=== PATIENT | female | born 1945 | race Two or more races ===

== ENCOUNTER 2018-09-17 07:58 | Emergency (ER) | payer OTHER ==
[~2018-09-17] VITALS: Ht 165.1 cm; Wt 83.9 kg
[~2018-09-17 07:58] MED LIST: AMLO1CAP12 PO; ATOR10TA60 PO; DILT180C29 PO; LISI-130 PO; WARF4TAB64 PO
[2018-09-17 08:37] LABS: BASO % 1 % (0-3); EOS # 0.1 x10^3/uL (0.0-0.7); EOS % 1 % (0-3); HEMATOCRIT 41.1 % (36.0-47.0); HEMOGLOBIN 13.8 g/dL (12.0-15.5); LYMPH # 1.4 x10^3/uL (1.0-4.8); LYMPH % 22 % (24-48); MEAN CORPUSCULAR HEMOGLOBIN 30 pg (25-35); MEAN CORPUSCULAR HGB CONC 34 g/dL (31-37); MEAN CORPUSCULAR VOLUME 89 fL (79-100); MONO # 0.5 x10^3/uL (0.0-1.1); MONO % 8 % (0-9); NEUT # 4.4 x10^3uL (1.8-7.7); NEUT % 68 % (31-73); PLATELET COUNT 222 x10^3/uL (140-400); RED BLOOD COUNT 4.61 x10^6/uL (3.50-5.40); RED CELL DISTRIBUTION WIDTH 13.8 % (11.5-14.5); WHITE BLOOD COUNT 6.5 x10^3/uL (4.0-11.0)
[2018-09-17 08:47] LABS: PROTHROMBIN TIME PATIENT 20.4 SEC (11.7-14.0)
[2018-09-17 08:51] LABS: CALCIUM 9.2 mg/dL (8.5-10.1); CREATININE 0.8 mg/dL (0.6-1.0); GFR 69.9
[2018-09-17 08:57] LABS: ALBUMIN 4.2 g/dL (3.4-5.0); ALBUMIN/GLOBULIN RATIO 1.2 (1.0-1.7); TOTAL BILIRUBIN 0.8 mg/dL (0.2-1.0); TOTAL PROTEIN 7.6 g/dL (6.4-8.2)
[2018-09-17] MEDS ORDERED: fentaNYL PF VIAL 100 MCG/2 ML VIAL IV ONE ×2 (09:00→09:45)
[2018-09-17 09:43] LABS: BILIRUBIN,URINE NEGATIVE (NEG); CLARITY,URINE CLEAR; COLOR,URINE YELLOW; NITRITE,URINE NEGATIVE (NEG); PROTEIN,URINE NEGATIVE (NEG-TRACE); UROBILINOGEN,URINE 0.2 mg/dL (0.2 mg/dL)
[2018-09-17] MEDS ORDERED: ONDANSETRON PF 4 MG/2 ML VIAL. IV ONE (09:45)
--- NOTE | 2018-09-17 10:05 | RAD ---
Limited abdomen ultrasound HISTORY: Right upper quadrant abdominal pain. FINDINGS: Bowel gas shadowing limits visualization of some segments of the pancreas, abdominal aorta and IVC, visualized segments are normal. There may be mild plaquing of the abdominal aorta present. Slightly increased liver echogenicity relative to renal parenchyma may indicate mild imaging changes of liver steatosis. No liver mass, surface irregularity or nodularity documented. Hepatopedal portal vein blood flow is present. No gallstones or inflammatory changes of the gallbladder. Right renal length 11.2 cm. No hydronephrosis. Exophytic right renal lower pole unilocular anechoic 5.5 similar cyst. Spleen and left kidney were not evaluated. IMPRESSION: 5 cm simple right renal cyst. There may be mild sonographic changes of liver steatosis. Gallbladder sonographically normal. No biliary ductal dilation. Electronically signed by: Wild Wilder MD (09/17/2018 10:02 AM) [facility]
[2018-09-17 10:10] LABS: BACTERIA,URINE 0 /HPF (0-FEW); WBC,URINE 0 /HPF (0-4)
[2018-09-17 10:11] LABS: SQUAMOUS EPITHELIAL CELL,UR OCC /LPF
[2018-09-17] MEDS ORDERED: IOHEXOL 300 MG/ML 100ML VIAL. IV ONE (10:15)
[2018-09-17] MEDS ORDERED: CONTRAST GIVEN. MC PRN (10:15)
--- NOTE | 2018-09-17 10:47 | RAD ---
PQRS Compliance statement: One or more of the following individualized dose reduction techniques were utilized for this examination: 1. Automated exposure control. 2. Adjustment of the mA and/or kV according to patient size. 3. Use of iterative reconstruction technique. Indication:Right abdominal pain. Rule out appendicitis. TECHNIQUE: CT abdomen and pelvis with IV contrast with multiplanar reformats. COMPARISON: 09/16/2014 FINDINGS: Heart is normal in size. No pericardial or pleural effusion. Motion artifact in lung bases limiting evaluation. Motion artifact is seen in the upper abdomen limiting optimal evaluation. Liver, spleen, gallbladder, pancreas, adrenals are within normal limits. Simple cyst in the right kidney measuring 5.5 cm. No nephrolithiasis or hydronephrosis. Cortical scarring in the left kidney likely from prior infection. No enlarged retroperitoneal or pelvic adenopathy. No free pelvic fluid or ascites. No bowel obstruction. Normal appendix. Status post hysterectomy. Urinary bladder is within normal limits. No pneumoperitoneum. No suspicious bony lesion. IMPRESSION: Limited Exam due to motion artifact in the lung bases and upper abdomen. 1. Normal appendix. No bowel obstruction. 2. No nephrolithiasis or hydronephrosis. Electronically signed by: Jun Gonzalez DO (09/17/2018 10:44 AM) [facility]
[2018-09-17 11:00] VITALS: BP 163/76
--- NOTE | 2018-09-17 14:26 | PHYS DOC ---
Past Medical History Past Medical History: Hypertension Alcohol Use: None Drug Use: None Adult General Chief Complaint Chief Complaint: ABDOMINAL PAIN HPI HPI Patient is a 73 year old female presents with abdominal pain. She's feeling some Dull pain in her right mid abdominal area radiating over to her right flank area as well has been present ever since she got a new refill on her Coumadin. She is attributing the symptoms to that new bottle that she is now taking however she has been taking Coumadin for several months if not longer no chest pain no shortness of breath pain is worse with palpation and movement and twisting Review of Systems Review of Systems Constitutional: Denies fever or chills [] Eyes: Denies change in visual acuity, redness, or eye pain [] HENT: Denies nasal congestion or sore throat [] Respiratory: Denies cough or shortness of breath [] Cardiovascular: No additional information not addressed in HPI [] GI: Integument: Denies rash or skin lesions [] Neurologic: Denies headache, focal weakness or sensory changes [] Endocrine: Denies polyuria or polydipsia [] Denies melena All other systems were reviewed and found to be within normal limits, except as documented in this note. Current Medications Current Medications Current Medications Medications (Trade) Dose Ordered Sig/Jose Guadalupe Start Time Stop Time Status Last Admin Dose Admin Fentanyl Citrate (Fentanyl 2ml Vial) 50 mcg 1X ONCE 09/17/18 09:45 09/17/18 09:52 DC 09/17/18 09:49 50 MCG Info (CONTRAST GIVEN -- Rx MONITORING) 1 each PRN DAILY PRN 09/17/18 10:15 09/17/18 11:10 DC Iohexol (Omnipaque 300 Mg/ml) 75 ml 1X ONCE 09/17/18 10:15 09/17/18 10:16 DC 09/17/18 10:15 75 ML Ondansetron HCl (Zofran) 4 mg 1X ONCE 09/17/18 09:45 09/17/18 09:52 DC 09/17/18 09:48 4 MG Allergies Allergies Allergies Coded Allergies Type Severity Reaction Last Updated Verified No Known Drug Allergies 12/12/13 No Physical Exam Physical Exam Constitutional: Well developed, well nourished, no acute distress, non-toxic appearance. [] HENT: Normocephalic, atraumatic, bilateral external ears normal, oropharynx moist, no oral exudates, nose normal. [] Eyes: PERRLA, EOMI, conjunctiva normal, no discharge. [] Neck: Normal range of motion, no tenderness, supple, no stridor. [] Cardiovascular:Heart rate regular rhythm, no murmur [] Lungs & Thorax: Bilateral breath sounds clear to auscultation [] Abdomen: Bowel sounds normal, soft, right upper quadrant tenderness, no masses, no pulsatile masses. [] Skin: Warm, dry, no erythema, no rash. [] Back: There is mild CVA tenderness on the right Extremities: No tenderness, no cyanosis, no clubbing, ROM intact, no edema. [] Neurologic: Alert and oriented X 3, normal motor function, normal sensory function, no focal deficits noted. [] Psychologic: Affect normal, judgement normal, mood normal. [] Current Patient Data Vital Signs Vital Signs Date Time Temp Pulse Resp B/P (MAP) Pulse Ox O2 Delivery O2 Flow Rate FiO2 09/17/18 11:00 88 20 163/76 (105) 97 09/17/18 09:52 Room Air 09/17/18 08:05 98.3 98.3 Lab Values Laboratory Tests Test 09/17/18 08:25 09/17/18 09:35 White Blood Count 6.5 x10^3/uL (4.0-11.0) Red Blood Count 4.61 x10^6/uL (3.50-5.40) Hemoglobin 13.8 g/dL (12.0-15.5) Hematocrit 41.1 % (36.0-47.0) Mean Corpuscular Volume 89 fL (79-100) Mean Corpuscular Hemoglobin 30 pg (25-35) Mean Corpuscular Hemoglobin Concent 34 g/dL (31-37) Red Cell Distribution Width 13.8 % (11.5-14.5) Platelet Count 222 x10^3/uL (140-400) Neutrophils (%) (Auto) 68 % (31-73) Lymphocytes (%) (Auto) 22 % (24-48) L Monocytes (%) (Auto) 8 % (0-9) Eosinophils (%) (Auto) 1 % (0-3) Basophils (%) (Auto) 1 % (0-3) Neutrophils # (Auto) 4.4 x10^3uL (1.8-7.7) Lymphocytes # (Auto) 1.4 x10^3/uL (1.0-4.8) Monocytes # (Auto) 0.5 x10^3/uL (0.0-1.1) Eosinophils # (Auto) 0.1 x10^3/uL (0.0-0.7) Basophils # (Auto) 0.0 x10^3/uL (0.0-0.2) Prothrombin Time 20.4 SEC (11.7-14.0) H Prothrombin Time INR 1.8 (0.8-1.1) H Sodium Level 140 mmol/L (136-145) Potassium Level 4.0 mmol/L (3.5-5.1) Chloride Level 102 mmol/L (98-107) Carbon Dioxide Level 26 mmol/L (21-32) Anion Gap 12 (6-14) Blood Urea Nitrogen 19 mg/dL (7-20) Creatinine 0.8 mg/dL (0.6-1.0) Estimated GFR (Cockcroft-Gault) 69.9 BUN/Creatinine Ratio 24 (6-20) H Glucose Level 136 mg/dL (70-99) H Calcium Level 9.2 mg/dL (8.5-10.1) Total Bilirubin 0.8 mg/dL (0.2-1.0) Aspartate Amino Transferase (AST) 34 U/L (15-37) Alanine Aminotransferase (ALT) 39 U/L (14-59) Alkaline Phosphatase 73 U/L (46-116) Troponin I Quantitative < 0.017 ng/mL (0.000-0.055) Total Protein 7.6 g/dL (6.4-8.2) Albumin 4.2 g/dL (3.4-5.0) Albumin/Globulin Ratio 1.2 (1.0-1.7) Lipase 140 U/L (73-393) Urine Collection Type Unknown Urine Color Yellow Urine Clarity Clear Urine pH 7.0 Urine Specific [place] 1.010 Urine Protein Negative mg/dL (NEG-TRACE) Urine Glucose (UA) Negative mg/dL (NEG) Urine Ketones (Stick) Negative mg/dL (NEG) Urine Blood Small (NEG) Urine Nitrite Negative (NEG) Urine Bilirubin Negative (NEG) Urine Urobilinogen Dipstick 0.2 mg/dL (0.2 mg/dL) Urine Leukocyte Esterase Trace (NEG) Urine RBC 3-5 /HPF (0-2) Urine WBC 0 /HPF (0-4) Urine Squamous Epithelial Cells Occ /LPF Urine Bacteria 0 /HPF (0-FEW) Laboratory Tests 09/17/18 08:25 Laboratory Tests 09/17/18 08:25 EKG EKG [] Radiology/Procedures Radiology/Procedures [] Impressions: IMPRESSION: Limited Exam due to motion artifact in the lung bases and upper abdomen. 1. Normal appendix. No bowel obstruction. 2. No nephrolithiasis or hydronephrosis. Electronically signed by: Jun Gonzalez DO (09/17/2018 10:44 AM) [facility] IMPRESSION: 5 cm simple right renal cyst. There may be mild sonographic changes of liver steatosis. Gallbladder sonographically normal. No biliary ductal dilation. Electronically signed by: Dominick Wilder MD (09/17/2018 10:02 AM) [facility] DICTATED and SIGNED BY: DOMINICK WILDER MD DATE: 09/17/18 1002 Course & Med Decision Making Course & Med Decision Making Pertinent Labs and Imaging studies reviewed. (See chart for details) []Labs are essentially unremarkable patient had an extensive workup in the lisa rgency room essentially negative workup normal gallbladder no signs of appendicitis. She was given the CT report in her discharge instructions to follow-up with her primary doctor about. EKG showed A. fib with rate of 80 no acute ischemic changes were noted left bundle branch block pattern QRS 142 Patient felt better the emergency room after pain control. She will follow-up with her primary care doctor regarding her usual daily medications. There is reproducible nature on examination at this time. Dragon Disclaimer Dragon Disclaimer This electronic medical record was generated, in whole or in part, using a voice recognition dictation system. Departure Departure Impression: Primary Impression: Abdominal pain Disposition: HOME, SELF-CARE Condition: STABLE Referrals: EUNICE JIMÉNEZ MD Patient Instructions: Abdominal Pain, [id number] Additional Instructions: ct scan report from the ER: FINDINGS: Heart is normal in size. No pericardial or pleural effusion. Motion artifact in lung bases limiting evaluation. Motion artifact is seen in the upper abdomen limiting optimal evaluation. Liver, spleen, gallbladder, pancreas, adrenals are within normal limits. Simple cyst in the right kidney measuring 5.5 cm. No nephrolithiasis or hydronephrosis. Cortical scarring in the left kidney likely from prior infection. No enlarged retroperitoneal or pelvic adenopathy. No free pelvic fluid or ascites. No bowel obstruction. Normal appendix. Status post hysterectomy. Urinary bladder is within normal limits. No pneumoperitoneum. No suspicious bony lesion. IMPRESSION: Limited Exam due to motion artifact in the lung bases and upper abdomen. 1. Normal appendix. No bowel obstruction. 2. No nephrolithiasis or hydronephrosis. Electronically signed by: Jun Gonzalez DO (09/17/2018 10:44 AM) [facility] DICTATED and SIGNED BY: JUN GONZALEZ DO DATE: 09/17/18 1044 VERONICA LINDSEY MD Sep 17, 2018 14:26
--- NOTE | 2018-09-18 06:41 | EKG ---
[facility] [address] [place] [address] Test Date: 2018-09-17 Test Time: 08:33:14 Pat Name: JOHNNY MONTERO Department: Room: Gender: F Licsw: : 1945 Requested By: VERONICA LINDSEY Order Number: [id number] Reading MD: Measurements Intervals [place] Rate: 80 P: -45 [place]: 328 QRS: -8 QRSD: 142 T: 89 QT: 402 QTc: 467 Interpretive Statements SINUS RHYTHM ATRIAL PREMATURE COMPLEX(ES) PROLONGED [place] INTERVAL LEFTWARD AXIS NON SPECIFIC INTRAVENTRICULAR BLOCK ABNORMAL ECG RI6.01 Unconfirmed report No previous ECG available for comparison
== END 2018-09-17 11:10 | disposition home or self-care (01) ==
LOC: ER 07:58
DX: R10.11 Right upper quadrant pain (principal); I10 Essential (primary) hypertension; Z79.01 Long term (current) use of anticoagulants
CPT/HCPCS: 36415; 74177; 76705; 80053; 81001; 83690; 84484; 85025; 85610; 87086; 93005; 96374; 96375; 96376; 99285; J2405; J3010; Q9967

== ENCOUNTER 2020-11-24 11:19 | Emergency (ER) | payer MEDICARE, OTHER ==
[~2020-11-24] VITALS: Ht 167.6 cm; Wt 77.3 kg
[~2020-11-24 11:19] MED LIST changes: -AMLO1CAP12 PO; +AMLO1CAP13 PO
--- NOTE | 2020-11-24 15:22 | PHYS DOC ---
Past Medical History Past Medical History: Hypertension (JACOBO HOLMAN PUBLIC AREA ATTENDANT) Smoking Status: Never Smoker Alcohol Use: None Drug Use: None (JACOBO HOLMAN APRN) General Adult EDM: Chief Complaint: FLU SYMPTOM HPI: HPI: Patient is a 75 year old female who presents with 1 week of cough, shortness of air and sore throat from coughing. She states she was given Tessalon Perles are not helping. Patient rates her discomfort at a 5 out of 10. Denies any current Covid vaccines. Patient denies nausea, vomiting, diarrhea, headache, dizziness, numbness or tingling, focal weakness. She is a history of hypertension. (JACOBO HOLMAN PUBLIC AREA ATTENDANT) Review of Systems: Review of Systems: Constitutional: Denies fever or chills. [] Eyes: Denies change in visual acuity. [] HENT: Denies nasal congestion or sore throat. [] Respiratory: +cough or +shortness of breath. [] Cardiovascular: Denies chest pain or edema. [] GI: + Epigastric abdominal pain, denies nausea, vomiting, bloody stools or diarrhea. [] : Denies dysuria. [] Musculoskeletal: Denies back pain or joint pain. [] Integument: Denies rash. [] Neurologic: Denies headache, focal weakness or sensory changes. [] Endocrine: Denies polyuria or polydipsia. [] Lymphatic: Denies swollen glands. [] Psychiatric: Denies depression or anxiety. [] (JACOBO HOLMAN PUBLIC AREA ATTENDANT) Heart Score: C/O Chest Pain: No Risk Factors: Risk Factors: DM, Current or recent (<one month) smoker, HTN, HLP, family history of CAD, obesity. Risk Scores: Score 0 - 3: 2.5% MACE over next 6 weeks - Discharge Home Score 4 - 6: 20.3% MACE over next 6 weeks - Admit for Clinical Observation Score 7 - 10: 72.7% MACE over next 6 weeks - Early Invasive Strategies (JACOBO HOLMAN PUBLIC AREA ATTENDANT) Allergies: Allergies: Allergies Coded Allergies Type Severity Reaction Last Updated Verified No Known Drug Allergies 12/12/13 No (JACOBO HOLMAN PUBLIC AREA ATTENDANT) Physical Exam: PE: Constitutional: Well developed, well nourished, no acute distress, non-toxic appearance. [] HENT: Normocephalic, atraumatic, bilateral external ears normal, oropharynx moist, no oral exudates, nose normal. [] Eyes: PERRLA, EOMI, conjunctiva normal, no discharge. [] Neck: Normal range of motion, no tenderness, supple, no stridor. [] Cardiovascular:Heart rate regular rhythm, no murmur [] Lungs & Thorax: Bilateral upper breath sounds clear and lower diminished to auscultation [] Abdomen: Bowel sounds normal, soft, no tenderness, no masses, no pulsatile masses. [] Skin: Warm, dry, no erythema, no rash. [] Back: No tenderness, no CVA tenderness. [] Extremities: No tenderness, no cyanosis, no clubbing, ROM intact, no edema. [] Neurologic: Alert and oriented X 3, normal motor function, normal sensory function, no focal deficits noted. [] Psychologic: Affect normal, judgement normal, mood normal. [] (JACOBO HOLMAN APRN) Current Patient Data: Vital Signs: Vital Signs Date Time Temp Pulse Resp B/P (MAP) Pulse Ox O2 Delivery O2 Flow Rate FiO2 11/24/20 19:00 96 18 160/75 (103) 94 Room Air 11/24/20 18:30 94 18 165/76 (105) 94 Room Air 11/24/20 18:00 94 18 166/75 (105) 96 Room Air 11/24/20 17:30 98 18 164/64 (97) 96 Room Air 11/24/20 17:00 100 18 181/80 (113) 98 Room Air 11/24/20 16:30 90 18 157/87 (110) 95 Room Air 11/24/20 14:50 98.3 104 18 181/84 97 Room Air 98.3 (SUKHDEEP PENG DO) EKG: EK and read by Dr Peng as irregular sinus rhythm, LBBB and no stemi (JACOBO HOLMAN APRN) Radiology/Procedures: Radiology/Procedures: [] Impression: [facility] [address] [place] [address] IMAGING REPORT Signed PATIENT: JOHNNY MONTERO ACCOUNT: [id number] : 1945 LOCATION: ER AGE: 75 SEX: F EXAM STATUS: REG ER ORD. PHYSICIAN: JACOBO HOLMAN APRN REASON: COUGH PROCEDURE: PORTABLE CHEST 1V XR CHEST 1V History: Cough. Comparison: None. Technique: Portable AP radiograph of the chest. Findings: The lungs are adequately inflated. There are bilateral lower lobe predominant patchy airspace opacities. No pleural effusion or pneumothorax. Cardiac silhouette is at the upper limits of normal for size. Pulmonary vasculature is unremarkable. Degenerative changes of the shoulders. Soft tissues are within normal limits. Impression: 1. Patchy bilateral airspace opacities concerning for multifocal infection versus edema. Electronically signed by: Roney Estevez MD (11/24/2020 3:22 PM) [id number] DICTATED and SIGNED BY: RONEY ESTEVEZ MD DATE: 11/24/20 [id number] (JACOBO HOLMAN APRN) Course & Med Decision Making: Course & Med Decision Making Pertinent Labs and Imaging studies reviewed. (See chart for details) COVID-19 CRITERIA: The patient was evaluated during the global COVID-19 pandemic, and that diagnosis was suspected/considered upon their initial presentation. Their evaluation, treatment and testing was consistent with current guidelines for patients who present with complaints or symptoms that may be related to COVID-19. See HPI. Alert and oriented x4. Ambulatory with a steady gait. Speaks in full clear sentences. Throat is pink without exudates or swelling. Lungs are clear in upper lobes and diminished in lower lobes. Afebrile. Vital signs within no rmal limits. Patient is Covid positive. She does have pneumonia. Patient is given 500 mL of bolus fluid. Given Zosyn in the ED. I also gave her dexamethasone. I will send her home with a Medrol Dosepak and inhaler. [] (JACOBO HOLMAN APRN) Course & Med Decision Making I have participated in the care of this patient and I have reviewed and agree with all pertinent clinical information above including history, exam, and recommendations. Patient with no supplemental oxygen requirement at the time of disposition. Symptomatically improved. Discharged in stable condition. Sukhdeep Peng DO (SUKHDEEP PENG DO) Mami Disclaimer: Mami Disclaimer: This electronic medical record was generated, in whole or in part, using a voice recognition dictation system. (JACOBO HOLMAN APRN) Departure Departure Impression: Primary Impression: COVID-19 Additional Impression: Pneumonia Qualified Codes: J18.9 - Pneumonia, unspecified organism Disposition: 01 HOME / SELF CARE / HOMELESS Condition: STABLE Referrals: TRICIA TRAN MD (PCP) Patient Instructions: Pneumonia, Adult Additional Instructions: Follow up with primary care doctor. Quarantine for 14 days. Drink plenty of fluids. You have been tested for or diagnosed with COVID-19. It is an infection caused by a new type of coronavirus. COVID-19 will cause cold-like or mild flu symptoms in most. It can cause more severe symptoms like problems breathing in some. There is no treatment for COVID-19. The body will clear the infection over time. Self-care will help to ease discomfort. Steps to Take: Self-Care Rest as needed. Healthy habits may help you feel better. Steps include: Choose healthy foods including fruits and vegetables. Drink water throughout the day. Get plenty of sleep each night. If you smoke, try to quit. It may ease breathing. Avoid alcohol. Keep Others Healthy The virus can spread to others. Droplets are released every time you sneeze or cough. The droplets can get into the mouth, nose, or eyes of people near you and lead to infection. To lower the chances of spreading COVID-19 to others: Stay at home until your doctor has said it is safe to leave. If you tested positive this will mean staying isolated until both of the following are true: At least 7 days have passed since the start of illness. You are free of fever for at least 72 hours without the use of medicine. During this time: - Avoid public areas, events, or transportation. Do not return to work or school until your doctor has said it is safe to do so. - Call ahead if you need to go to a medical center. Let them know you may have COVID-19. It will help them guide you where to go. They may also ask you to wear a facemask when you come to the office. - If you call for emergency medical services, let them know you may have COVID- 19. While at home: - Try to avoid close contact with others. Stay about 6 feet away. - If possible, spend most of your time in a separate room from others. - Use a face mask if you will be in close contact with others such as sharing a room or vehicle. - Have someone wipe down common surfaces in the home. Use household roll handler every day on areas like doorknobs, counters, or sinks. - Cough or sneeze into a tissue. Throw the tissue away right after use. If a tissue is not available, cough or sneeze into your elbow. - Wash your hands often. Wash them after sneezing or coughing. Use soap and water and wash for at least 20 seconds. Alcohol based hand cleaner and dyer can be used if soap and water is not available. - Do not prepare food for others. Avoid sharing personal items like forks, spoons, or toothbrushes. - Avoid close contact with pets while you are sick. There is no evidence of the virus passing to pets. This is a safety step until more is known about this virus. Isolation can be frustrating. Social interaction can help. Keep in touch with friends and family through phone and tech options. You can still interact with others in your home, just keep a safe distance of about 6 feet. Follow-up: Your doctors office will check in with you to see if there are any changes in your health. You may be asked to keep track of symptoms to share with them. They will also let you know when you are clear to be in public again. Problems to Look Out For: Contact your doctor if your recovery is not going as you expect. Get emergency care if you have problems such as: - Trouble breathing - Nonstop chest pain or pressure - Changes in awareness, confusion, or problems waking - Lips or face have bluish color - Worsening of symptoms If you think you have an emergency, call for emergency medical services right away. As taken from [facility] Scripts Amoxicillin/Potassium Clav (AUGMENTIN 875-125 TABLET) 1 Each Tablet 1 TAB PO BID for 7 Days, #14 TAB 0 Refills Prov: URIEL PRICE PUBLIC AREA ATTENDANT 11/24/20 Albuterol Sulfate (PROAIR HFA INHALER) 8.5 Gm Hfa.aer.ad 1 PUFF INH PRN Q6HRS PRN for SHORTNESS OF BREATH, #1 EACH 0 Refills Prov: JACOBO HOLMAN PUBLIC AREA ATTENDANT 11/24/20 Acetaminophen With Codeine (ACETAMINOPHEN-COD #3 TABLET) 1 Each Tablet 1 TAB PO PRN Q6HRS PRN for PAIN, #15 TAB Prov: JACOBO HOLMAN 11/24/20 Methylprednisolone (MEDROL) 4 Mg Tab.ds.pk 1 PKG PO UD, #1 PKG Prov: JACOBO HOLMAN PUBLIC AREA ATTENDANT 11/24/20 JACOBO HOLMAN Nov 24, 2020 15:22 URIEL PRICE Nov 24, 2020 19:30 SUKHDEEP PENG DO Nov 25, 2020 06:36
--- NOTE | 2020-11-24 15:25 | RAD ---
XR CHEST 1V History: Cough. Comparison: None. Technique: Portable AP radiograph of the chest. Findings: The lungs are adequately inflated. There are bilateral lower lobe predominant patchy airspace opaciti es. No pleural effusion or pneumothorax. Cardiac silhouette is at the upper limits of normal for size . Pulmonary vasculature is unremarkable. Degenerative changes of the shoulders. Soft tissues are with in normal limits. Impression: 1. Patchy bilateral airspace opacities concerning for multifocal infection versus edema. Electronically signed by: Roney Ortiz MD (11/24/2020 3:22 PM) [id number]
[2020-11-24] MEDS ORDERED: DEXAMETHASONE 4 MG TABLET PO ONE (16:15)
[2020-11-24 16:55] LABS: BASO % 1 % (0-3); EOS % 0 % (0-3); HEMATOCRIT 42.2 % (36.0-47.0); HEMOGLOBIN 14.1 g/dL (12.0-15.5); LYMPH # 0.8 x10^3/uL (1.0-4.8); LYMPH % 19 % (24-48); MEAN CORPUSCULAR HEMOGLOBIN 29 pg (25-35); MEAN CORPUSCULAR HGB CONC 34 g/dL (31-37); MEAN CORPUSCULAR VOLUME 88 fL (79-100); MONO # 0.4 x10^3/uL (0.0-1.1); MONO % 8 % (0-9); NEUT # 3.2 x10^3/uL (1.8-7.7); NEUT % 72 % (31-73); PLATELET COUNT 134 x10^3/uL (140-400); RED BLOOD COUNT 4.81 x10^6/uL (3.50-5.40); RED CELL DISTRIBUTION WIDTH 13.4 % (11.5-14.5); WHITE BLOOD COUNT 4.4 x10^3/uL (4.0-11.0)
[2020-11-24 17:11] LABS: CALCIUM 8.5 mg/dL (8.5-10.1); CREATININE 0.8 mg/dL (0.6-1.0); GFR 69.6; POTASSIUM 3.8 mmol/L (3.5-5.1)
[2020-11-24 17:18] LABS: ALBUMIN 3.6 g/dL (3.4-5.0); TOTAL BILIRUBIN 0.5 mg/dL (0.2-1.0); TOTAL PROTEIN 7.2 g/dL (6.4-8.2)
[2020-11-24] MEDS ORDERED: IV NORMAL SALINE 500ML BAG 500 ML IV ONE (17:45)
[2020-11-24] MEDS ORDERED: PIPERACILLIN/TAZOBACTAM 3.375 GM in IV NORMAL SALINE 50ML 50 ML IV ONE (18:00)
[2020-11-24 18:23] LABS: BILIRUBIN,URINE NEGATIVE (NEG); CLARITY,URINE CLEAR; COLOR,URINE YELLOW; NITRITE,URINE NEGATIVE (NEG); PROTEIN,URINE 30 mg/dL (NEG-TRACE)
--- NOTE | 2020-11-24 18:34 | EKG ---
[facility] [address] [place] [address] Test Date: 2020-11-24 Test Time: 16:18:13 Pat Name: JOHNNY MONTERO Department: Room: Gender: F Title Agent: : 1945 Requested By: JACOBO HOLMAN Order Number: [id number] Reading MD: Measurements Intervals [place] Rate: 90 P: IN: QRS: -3 QRSD: 140 T: 76 QT: 376 QTc: 464 Interpretive Statements IRREGULAR RHYTHM, NO P-WAVE FOUND VENTRICULAR PREMATURE COMPLEX(ES) LEFTWARD AXIS LEFT BUNDLE BRANCH BLOCK ABNORMAL ECG RI6.02 No previous ECG available for comparison
[2020-11-24 18:40] LABS: BACTERIA,URINE MODERATE /HPF (0-FEW)
[2020-11-24] MEDS ORDERED: ALBU2.5V8 INH (18:51)
[2020-11-24] MEDS ORDERED: METH4TAB2 PO (18:51)
[2020-11-24] MEDS ORDERED: ACET1TAB33 PO (18:51)
[2020-11-24 19:00] VITALS: BP 160/75
[2020-11-24] MEDS ORDERED: AMOX1TAB61 PO (19:30)
== END 2020-11-24 19:45 | disposition home or self-care (01) ==
LOC: ER 11:19
DX: U07.1 COVID-19 (principal); J18.9 Pneumonia, unspecified organism; I10 Essential (primary) hypertension
CPT/HCPCS: 36415; 71045; 80053; 81001; 83605; 83880; 84484; 85025; 87040; 87086; 87426; 93005; 96365; 99285; J2543; J7040

== ENCOUNTER 2020-11-29 07:32 | Emergency (ER) | payer MEDICARE ==
[~2020-11-29] VITALS: Ht 157.5 cm; Wt 72.7 kg
[~2020-11-29 07:32] MED LIST changes: +ACET1TAB33 PO; +ALBU2.5V8 INH; +AMOX1TAB61 PO; +METH4TAB2 PO
--- NOTE | 2020-11-29 07:55 | PHYS DOC ---
Past Medical History Past Medical History: Hypertension Additional Past Medical Histor: on blood thinner "for legs" Past Surgical History: Other Additional Past Surgical Histo: "legs" surgery Smoking Status: Never Smoker Alcohol Use: None Drug Use: None General Adult EDM: Chief Complaint: ABDOMINAL PAIN HPI: HPI: 75-year-old female past medical history of hypertension, afib on AC (echo 2013 w /ef 50-55%-per emr review) and Covid infection w/multifocal pna 5 days ago (11/24 on Augmentin), presents to the ED with complaints of upper abdominal pain, sore throat and "I can't go," although reports she had a bowel movement last night. Pt is danish speaking and screening technician services were used. Lives with who speaks armenian and danish. Review of Systems: Review of Systems: Constitutional: Denies fever or chills. [] Eyes: Denies change in visual acuity. [] HENT: Denies nasal congestion or sore throat. [] Respiratory: Denies cough or shortness of breath. [] Cardiovascular: Denies chest pain or edema. [] GI: Denies nausea, vomiting, bloody stools or diarrhea. [] : Denies dysuriaor hematuria Musculoskeletal: Denies back pain or joint pain. [] Integument: Denies rash or diaphoresis Neurologic: Denies headache, focal weakness or sensory changes. [] Endocrine: Denies polyuria or polydipsia. [] Lymphatic: Denies swollen glands. [] Psychiatric: Denies depression or anxiety. [] Heart Score: C/O Chest Pain: No Risk Factors: Risk Factors: DM, Current or recent (<one month) smoker, HTN, HLP, family history of CAD, obesity. Risk Scores: Score 0 - 3: 2.5% MACE over next 6 weeks - Discharge Home Score 4 - 6: 20.3% MACE over next 6 weeks - Admit for Clinical Observation Score 7 - 10: 72.7% MACE over next 6 weeks - Early Invasive Strategies Allergies: Allergies: Allergies Coded Allergies Type Severity Reaction Last Updated Verified No Known Drug Allergies 12/12/13 No Physical Exam: PE: Constitutional: Well developed, well nourished, no acute distress, non-toxic appearance. HENT: Normocephalic, atraumatic, very dry mucous membranes Eyes: EOMI, conjunctiva normal, no discharge. Neck: Normal range of motion, supple, Cardiovascular: S1/2 present, regular rhythm Lungs & Thorax: Speaking in full sentences, bilateral equal chest rise, no tachypnea or increased work of breathing Abdomen: soft, ruq and luq ttp w/no guarding or rigidity, no murphys sign, no lower abdominal discomfort Skin: Warm, dry, no erythema, no rash. [] Back: No tenderness, no CVA tenderness. [] Extremities: No tenderness, no cyanosis, no lower extremity edema Neurologic: Alert and oriented X 3, normal motor function, normal sensory function, no focal deficits noted. [] Psychologic: Affect normal, judgement normal, mood normal. [] Current Patient Data: Vital Signs: Vital Signs Date Time Temp Pulse Resp B/P (MAP) Pulse Ox O2 Delivery O2 Flow Rate FiO2 11/29/20 07:47 97.7 101 20 194/84 (103) 95 Room Air 97.7 EKG: EKG: Atrial fibrillation at 93 bpm, left axis deviation, first-degree AV block with ME interval 226, QRS 136, QTc 503, multiple PVCs, T wave inversion aVL, no ST elevations or ST depressions Radiology/Procedures: Radiology/Procedures: IMAGING REPORT Signed PATIENT: JOHNNY MONTERO ACCOUNT: [id number] : 1945 LOCATION: ER AGE: 75 SEX: F EXAM STATUS: REG ER ORD. PHYSICIAN: BLADIMIR NICOLAS DO REASON: abd pain PROCEDURE: PORTABLE CHEST 1V XR CHEST 1V INDICATION: abd pain COMPARISON STUDY: 11/24/2020. FINDINGS: Lungs: Normal lung volume. Persistent patchy bilateral opacities. Pleura: No pleural effusion or pneumothorax. Heart and Mediastinum: Stable cardiomediastinal silhouette and great vessels. IMPRESSION: Persistent patchy bilateral opacities. Electronically signed by: Naseem Little MD (11/29/2020 8:34 AM) [facility] [place] DICTATED and SIGNED BY: NASEEM LITTLE MD DATE: 11/29/20 [id number] IMAGING REPORT Signed PATIENT: JOHNNY MONTERO ACCOUNT: [id number] : 1945 LOCATION: ER AGE: 75 SEX: F EXAM STATUS: REG ER ORD. PHYSICIAN: BLADIMIR NICOLAS DO REASON: mid abd pain, +covid PROCEDURE: CT ABD PELV W/ IV CONTRST ONLY CT STUDY OF THE ABDOMEN AND PELVIS WITH CONTRAST Clinical indications: Mid abdominal pain. Covid 19 positive. TECHNIQUE: After IV infusion of 75 cc of Omnipaque 300, helical CT scanning of the abdomen and pelvis was performed. GI contrast was not administered. This may decrease the sensitivity to detect GI tract pathology. PQRS COMPLIANCE STATEMENT One or more of the following individualized dose reduction techniques were utilized for this study: 1. Automated exposure control 2. Adjustment of the mA and/or kV according to patient size 3. Use of iterative reconstruction technique COMPARISON: September 17, 2018. FINDINGS: The liver and spleen and pancreas and gallbladder are normal. No extrahepatic biliary ductal dilatation is seen. No adrenal mass is evident. Chronic pyelonephritis of the left kidney is seen. There is a prominent cyst of the lower pole of the right kidney which is incidental finding and no further follow-up is needed. No hydronephrosis or hydroureter or urinary tract stone is evident. The urinary bladder wall is smooth. No focal aneurysmal dilatation of the abdominal aorta is seen. No enlarged abdominal or pelvic lymphadenopathy is seen. The uterus is surgically absent. Sigmoid diverticulosis is seen without diverticulitis. The appendix and terminal ileum are normal. No obstructive bowel pattern is seen. No free intraperitoneal air or free fluid or mesenteric edema is seen. Bibasilar groundglass lung infiltrates are seen consistent with Covid 19 pneumonia. No lytic process is seen. IMPRESSION: No acute abnormality of the abdomen or pelvis. Bibasilar groundglass lung infiltrates consistent with Covid 19 pneumonia. Electronically signed by: Prosper Gonsalez MD (11/29/2020 9:54 AM) [id number] DICTATED and SIGNED BY: PROSPER GONSALEZ MD DATE: 11/29/20 [id number] 0 Course & Med Decision Making: Course & Med Decision Making Pertinent Labs and Imaging studies reviewed. (See chart for details) Concern for Covid with multifocal pneumonia in the setting of upper abdominal pain. 83 & 91bpm, 96% on room air. Is not requiring supplemental oxygen. Reports no associated chest pain, back pain, lower extremity swelling, hemoptysis or dyspnea. Patient is tolerating oral intake. Will prescribe Pepcid and encourage medication compliance with prior antibiotics and steroids. Will discharge home with strict ED return precautions were given for chest pressure, dyspnea, leg swelling, hemoptysis or neurologic deficits. Encouraged urgent outpatient follow-up with PMD for repeat evaluation. Life-threatening processes were considered but are low suspicion at this time, given history, physical exam and ED workup. Pt was educated on all prescription medications and adverse effects. All patient's questions were answered and pt was stable at time of discharge. Life/limb-threatening differential includes but is not limited to, aortic dissection, aortic aneurysm, acute coronary syndrome, surgical abdomen (appendicitis, cholecystitis, ischemic bowel, strangulated hernia, etc), bowel obstruction or volvulus, bladder outlet obstruction, gastrointestinal bleeding, inflammatory bowel disease, peptic ulcer disease, ACS/CAD, sepsis, diverticular disease, ureterolithiasis, nephrolithiasis, ovarian or testicular torsion, ectopic , vaginal hemorrhage, or genitourinary infection. I have spoken with the patient and/or caregivers. I explained the patient's condition, diagnoses and treatment plan based on the information available to me at this time. I have answered the patient and/or caregiver's questions and addressed any concerns. The patient and/or caregivers have a good understanding of patient's diagnosis, condition and treatment plan as can be expected at this point. Vital signs have been stable. Patient's condition is stable and appropriate for discharge from the emergency department. Patient will pursue further outpatient evaluation with primary care physician or other designated or consulting physician as outlined in the discharge instruct ions. The patient and/or caregivers are agreeable to this plan of care and follow-up instructions have been explained in detail. The patient and/or caregivers have received these instructions in written form and have expressed an understanding of the discharge instructions. The patient and/or caregivers are aware that any significant change of condition or worsening of symptoms should prompt immediate return to this or the closest emergency department or call to 911. Mami Disclaimer: Mami Disclaimer: This electronic medical record was generated, in whole or in part, using a voice recognition dictation system. Departure Departure Impression: Primary Impression: Pneumonia due to 2019 novel coronavirus Additional Impression: Abdominal pain Disposition: HOME / SELF CARE / HOMELESS Condition: STABLE Referrals: TRICIA TRAN MD (PCP) IN 1- 2 DAYS FOR RE-EVALUATION Patient Instructions: Upper Respiratory Infection, Adult Additional Instructions: Return to ED immediately if your oxygen level drops below 90% (purchase a pulse oximetry at a medical supply store), difficulties breathing including rapid breathing or increased work of breathing (skin sucking under ribs), chest pain or stroke-like symptoms (facial droop, speech changes, arm/leg weakness). EMERGENCY DEPARTMENT GENERAL DISCHARGE INSTRUCTIONS Thank you for coming to [facility] Emergency Department (ED) today and trusting us with you care. We trust that you had a positive experience in our Emergency Department. If you wish to speak to the department management, you may call the Director at [phone]. YOUR FOLLOW UP INSTRUCTIONS ARE FOLLOWS: 1. Do you have a private Doctor? If you do not have a private doctor, please ask for a resource list of physicians or clinics that may be able to assist you with follow up care. ADDITIONAL INSTRUCTIONS AND INFORMATION: 1. Your care today has been supervised by a physician who is specially trained in emergency care. Many problems require more than one evaluation for a complete diagnosis and treatment. We recommend that you schedule your follow up appointment as recommended to ensure complete treatment of you illness or injury. If you are unable to obtain follow up care and continue to have a problem, or if your condition worsens, we recommend that you return to the ED. 2. We are not able to safely determine your condition over the phone nor are we able to give sound medical advice over the phone. For these safety reasons, if you call for medical advice we will ask you to come to the ED for further evaluation. 3. If you have any questions regarding these discharge instructions please call the ED at [phone]. SAFETY INFORMATION: In the interest of safety, wellness, and injury prevention; we encourage you to wear your sealbelt, if you smoke; quite smoking, and we encourage family to use a protective helmet for bicycling and other sporting events that present an increased risk for head injury. IF YOUR SYMPTOMS WORSEN OR NEW SYMPTOMS DEVELOP, OR YOU HAVE CONCERNS ABOUT YOUR CONDITION; OR IF YOUR CONDITION WORSENS WHILE YOU ARE WAITING FOR YOUR FOLLOW UP APPOINTMENT; EITHER CONTACT YOUR PRIMARY CARE DOCTOR, THE PHYSICIAN WHOSE NAME AND NUMBER YOU WERE GIVEN, OR RETURN TO THE ED IMMEDIATELY. Scripts Famotidine (PEPCID) 20 Mg Tablet 20 MG PO BID for 10 Days, #20 TAB Prov: BLADIMIR NICOLAS DO 11/29/20 BLADIMIR NICOLAS DO Nov 29, 2020 07:55
--- NOTE | 2020-11-29 08:36 | RAD ---
XR CHEST 1V INDICATION: abd pain COMPARISON STUDY: 11/24/2020. FINDINGS: Lungs: Normal lung volume. Persistent patchy bilateral opacities. Pleura: No pleural effusion or pneumothorax. Heart and Mediastinum: Stable cardiomediastinal silhouette and great vessels. IMPRESSION: Persistent patchy bilateral opacities. Electronically signed by: Andriy Little MD (11/29/2020 8:34 AM) [facility]
[2020-11-29 08:37] LABS: BILIRUBIN,URINE NEGATIVE (NEG); CLARITY,URINE CLEAR; COLOR,URINE YELLOW; NITRITE,URINE NEGATIVE (NEG); PROTEIN,URINE 30 mg/dL (NEG-TRACE); UROBILINOGEN,URINE 0.2 mg/dL (0.2 mg/dL)
[2020-11-29 08:39] LABS: BARBITURATES NEG (NEG); BENZODIAZEPINES NEG (NEG); CANNABINOIDS NEG (NEG); COCAINE NEG (NEG); METHADONE NEG (NEG); OPIATES NEG (NEG); PHENCYCLIDINE NEG (NEG)
[2020-11-29 08:43] LABS: CALCIUM 8.5 mg/dL (8.5-10.1); CREATININE 0.8 mg/dL (0.6-1.0); GFR 69.6; POTASSIUM 3.5 mmol/L (3.5-5.1)
[2020-11-29 08:44] LABS: BASO % 0 % (0-3); EOS % 0 % (0-3); HEMATOCRIT 41.2 % (36.0-47.0); HEMOGLOBIN 14.3 g/dL (12.0-15.5); LYMPH # 0.7 x10^3/uL (1.0-4.8); LYMPH % 9 % (24-48); MEAN CORPUSCULAR HEMOGLOBIN 31 pg (25-35); MEAN CORPUSCULAR HGB CONC 35 g/dL (31-37); MEAN CORPUSCULAR VOLUME 89 fL (79-100); MONO # 0.5 x10^3/uL (0.0-1.1); MONO % 6 % (0-9); NEUT # 7.3 x10^3/uL (1.8-7.7); NEUT % 85 % (31-73); PLATELET COUNT 269 x10^3/uL (140-400); RED BLOOD COUNT 4.64 x10^6/uL (3.50-5.40); RED CELL DISTRIBUTION WIDTH 13.3 % (11.5-14.5); WHITE BLOOD COUNT 8.6 x10^3/uL (4.0-11.0)
[2020-11-29 08:46] LABS: AMPHETAMINE/METHAMPHETAMINE NEG (NEG)
[2020-11-29 08:48] LABS: BACTERIA,URINE FEW /HPF (0-FEW); HYALINE CASTS, URINE OCCASIONAL /HPF; RBC,URINE 0 /HPF (0-2)
[2020-11-29 08:49] LABS: ALBUMIN 3.1 g/dL (3.4-5.0); DIRECT BILIRUBIN 0.3 mg/dL (0.0-0.2); MAGNESIUM 1.9 mg/dL (1.8-2.4); TOTAL PROTEIN 6.8 g/dL (6.4-8.2)
[2020-11-29] MEDS ORDERED: IOHEXOL 300 MG/ML 100ML VIAL. IV ONE (09:15)
[2020-11-29] MEDS ORDERED: CONTRAST GIVEN. MC PRN (09:15)
--- NOTE | 2020-11-29 09:56 | RAD ---
CT STUDY OF THE ABDOMEN AND PELVIS WITH CONTRAST Clinical indications: Mid abdominal pain. Covid 19 positive. TECHNIQUE: After IV infusion of 75 cc of Omnipaque 300, helical CT scanning of the abdomen and pelvis was performed. GI contrast was not administered. This may decrease the sensitivity to detect GI trac t pathology. PQRS COMPLIANCE STATEMENT One or more of the following individualized dose reduction techniques were utilized for this study: 1. Automated exposure control 2. Adjustment of the mA and/or kV according to patient size 3. Use of iterative reconstruction technique COMPARISON: September 17, 2018. FINDINGS: The liver and spleen and pancreas and gallbladder are normal. No extrahepatic biliary ducta l dilatation is seen. No adrenal mass is evident. Chronic pyelonephritis of the left kidney is seen. There is a prominent cyst of the lower pole of the right kidney which is incidental finding and no fu rther follow-up is needed. No hydronephrosis or hydroureter or urinary tract stone is evident. The ur inary bladder wall is smooth. No focal aneurysmal dilatation of the abdominal aorta is seen. No enlar ged abdominal or pelvic lymphadenopathy is seen. The uterus is surgically absent. Sigmoid diverticulo sis is seen without diverticulitis. The appendix and terminal ileum are normal. No obstructive bowel pattern is seen. No free intraperitoneal air or free fluid or mesenteric edema is seen. Bibasilar mei undglass lung infiltrates are seen consistent with Covid 19 pneumonia. No lytic process is seen. IMPRESSION: No acute abnormality of the abdomen or pelvis. Bibasilar groundglass lung infiltrates consistent with Covid 19 pneumonia. Electronically signed by: Moisés Gonsalez MD (11/29/2020 9:54 AM) [id number]
[2020-11-29] MEDS ORDERED: FAMO-63 PO (11:01)
[2020-11-29 11:30] VITALS: BP 188/83
--- NOTE | 2020-11-30 18:54 | EKG ---
[facility] [address] [place] [address] Test Date: 2020-11-29 Test Time: 08:09:47 Pat Name: JOHNNY MONTERO Department: Room: Gender: F Repair Department Supervisor: : 1945 Requested By: BLADIMIR NICOLAS Order Number: [id number] Reading MD: Measurements Intervals [place] Rate: 93 P: -51 TN: 226 QRS: -23 QRSD: 136 T: 111 QT: 402 QTc: 503 Interpretive Statements SINUS RHYTHM VENTRICULAR PREMATURE COMPLEX(ES) ATRIAL PREMATURE COMPLEX(ES) PROLONGED TN INTERVAL LEFT ATRIAL ABNORMALITY LEFTWARD AXIS NON SPECIFIC INTRAVENTRICULAR BLOCK ABNORMAL ECG RI6.01 No previous ECG available for comparison
== END 2020-11-29 11:47 | disposition home or self-care (01) ==
LOC: ER 07:32
DX: U07.1 COVID-19 (principal); J12.82 Pneumonia due to coronavirus disease 2019; R10.11 Right upper quadrant pain; R10.12 Left upper quadrant pain
CPT/HCPCS: 36415; 71045; 74177; 80048; 80076; 80307; 81001; 83605; 83690; 83735; 83880; 84484; 85025; 87040; 93005; 99285; Q9967